=== PATIENT | female | born 1940 | race Caucasian/White ===

== ENCOUNTER 2016-11-26 10:23 | Inpatient (IN) | payer MEDICARE, OTHER ==
[~2016-11-26 10:23] MED LIST: CLONIDINE HCL0.1 M2 PO; COZAAR25 M1 PO; METOPROLOL SUCC50 M1 PO; OMEPRAZOLE40 M2 PO
[2016-11-26 14:13] LABS: BASO % 0.4 % (0-2); EOS % 2.2 % (0-7); EOSINOPHIL ABSOLUTE COUNT 0.2 tho/cmm (0.0-0.7); HGB-HEMOGLOBIN 9.1 gm/dl (12.0-15.5); IMMATURE GRANULOCYTES ABSOLUTE 0.03 tho/cmm (0-0.03); IMMATURE GRANULOCYTES PERCENT 0.4 % (0-0.3); LYMPH % 7.9 % (20-45); LYMPH ABSOLUTE COUNT 0.6 tho/cmm (0.8-4.5); MCH (MEAN CORPUSCULAR HGB) 32.9 pg (28.0-32.0); MCHC MEAN CORPUSCULAR HGB CONC 33.7 % (32.0-36.0); MCV (MEAN CELL VOLUME) 97.5 fl (82.0-96.0); MEAN PLATELET VOLUME 8.6 cmc (9.4-12.4); MONO % 8.5 % (0-12); MONOCYTE ABSOLUTE COUNT 0.6 tho/cmm (0.0-1.2); NEUTROPHIL ABSOLUTE COUNT 5.6 tho/cmm (1.6-8.0); NEUTROPHIL-AUTOMATED 5.6 tho/cmm (1.6-8.0); NEUTROPHILS % 80.6 % (40-80); PLATELET COUNT 334 tho/cmm (150-450); RED BLOOD COUNT 2.77 mil/cmm (4.00-5.20); RED CELL DISTRIBUTION WIDTH 12.4 % (12.4-16.4); WHITE BLOOD COUNT 6.9 tho/cmm (4.0-10.0)
[2016-11-26 14:22] LABS: ALBUMIN 2.5 g/dl (3.5-5.0); ANION GAP 18 mmol/L (0-20); BLOOD UREA NITROGEN 123 mg/dl (6-24); CALCIUM 8.6 mg/dl (8.5-10.5); CARBON DIOXIDE-VENOUS 19 mmol/L (22-32); CHLORIDE 102 mmol/l (96-110); CREATININE 6.16 mg/dl (0.50-1.10); GLUCOSE 176 mg/dL (70-110); POTASSIUM 3.8 mmol/L (3.7-5.1); SODIUM 135 mmol/L (135-145); eGFR VALUE FOR BLACK 7 mL/Min
[2016-11-26] MEDS ORDERED: BRIMONIDINE TART5 M2 EACH EYE (14:33)
[2016-11-26] MEDS ORDERED: DURAGESIC1 EAC1 TOP (14:34)
[2016-11-27] MEDS ORDERED: TYLENOL325 M2 PO (12:57)
[2016-11-27] MEDS ORDERED: KEFLEX500 M4 PO (13:00)
== END 2016-11-27 13:15 | DRG 682 ==
LOC: 5WD 10:23
PROVIDERS: ADMIT Internal Medicine Nephrology
PROC: 05H933Z Insertion of Infusion Device into Right Brachial Vein, Percutaneous Approach (ICD-10-PCS; principal; 2016-11-26)
DX: I12.0 Hypertensive chronic kidney disease with stage 5 chronic kidney disease or end stage renal disease (principal); N18.6 End stage renal disease; E87.2 Acidosis; E87.8 Other disorders of electrolyte and fluid balance, not elsewhere classified; L03.116 Cellulitis of left lower limb; I87.2 Venous insufficiency (chronic) (peripheral); G47.00 Insomnia, unspecified; K21.9 Gastro-esophageal reflux disease without esophagitis; D64.9 Anemia, unspecified; Z91.15 Patient's noncompliance with renal dialysis
CPT/HCPCS: C1751; J0690